=== PATIENT | female | born 1995 | race Caucasian/White ===

== ENCOUNTER 2017-06-18 20:10 | Observation (INO) | payer MEDICAID ==
[~2017-06-18] VITALS: Ht 165.1 cm; Wt 75.7 kg
[2017-06-18] MEDS ORDERED: PREN1TAB45 PO (21:05)
[2017-06-18] MEDS ORDERED: FERR325T6 PO (21:05)
[2017-06-18] MEDS ORDERED: FOLI-43 PO (21:05)
[2017-06-18] MEDS ORDERED: LACTATED RINGERS 1,000 ML IV SCH (21:30)
[2017-06-18] MEDS: TERBUTALINE SULFATE 1MG/ML VIAL SUBCUT PRN ×2 (21:44→22:20)
== END 2017-06-18 23:25 | disposition home or self-care (01) ==
LOC: L&D 20:10
PROVIDERS: ADMIT Obstetrics & Gynecology; ATTEND Obstetrics & Gynecology
DX: O26.893 Other specified pregnancy related conditions, third trimester (principal); R10.30 Lower abdominal pain, unspecified; Z3A.38 38 weeks gestation of pregnancy
CPT/HCPCS: 96360; 96361; 96372; 99281; G0378; J3105; J7120